=== PATIENT | female | born 1990 | race Caucasian/White ===

== ENCOUNTER 2019-07-14 14:06 | Observation (INO) | payer MEDICAID, OTHER ==
[~2019-07-14] VITALS: Ht 167.6 cm; Wt 88.6 kg
[2019-07-14 14:35] VITALS: BP 119/64
[2019-07-14 15:25] LABS: MICROSCOPIC INDICATED
[2019-07-14 15:27] LABS: AMPHETAMINE SCREEN, URINE Negative (Negative); BARBITURATE SCREEN, URINE Negative (Negative); BENZODIAZEPINE SCREEN, URINE Negative (Negative); CANNABINOID SCREEN, URINE Positive (Negative); COCAINE SCREEN, URINE Negative (Negative); METHADONE SCREEN, URINE Negative (Negative); OPIATE SCREEN, URINE Negative (Negative)
[2019-07-14] MEDS ORDERED: OXYcodone/APAP 5/325MG TABLET ONE (17:33)
[2019-07-14 17:46] LABS: BASOPHILS # (AUTO) 0.06 x10^3/uL (0-0.1); BASOPHILS % (AUTO) 1 % (0-1); EOSINOPHILS # (AUTO) 0.11 x10^3/uL (0-0.4); EOSINOPHILS % (AUTO) 1 % (1-7); LYMPHOCYTES # (AUTO) 2.44 x10^3/uL (1-3.4); LYMPHOCYTES % (AUTO) 24 % (22-44); MD NO; MEAN CORPUSCULAR HEMOGLOBIN 31.2 pg (27.0-34.8); MEAN CORPUSCULAR HGB CONC 34.3 g/dL (32.4-35.8); MEAN PLATELET VOLUME 7.5 fL (7.4-10.4); MONOCYTES # (AUTO) 0.42 x10^3/uL (0.2-0.8); MONOCYTES % (AUTO) 4 % (2-9); NEUTROPHILS # (AUTO) 7.29 x10^3/uL (1.8-6.8); NEUTROPHILS % (AUTO) 71 % (42-75); PLATELET COUNT 302 x10^3/uL (130-400); RED BLOOD COUNT 3.52 x10^6/uL (3.82-5.3); RED CELL DISTRIBUTION WIDTH 13.9 % (9.6-15.2)
[2019-07-14] MEDS ORDERED: OXYcodone/APAP 5/325MG TABLET PO ONE (18:00)
[2019-07-14] MEDS ORDERED: PLEASE ENTER ALLERGIES MC SCH (18:00)
[2019-07-14 18:47] LABS: ALBUMIN 3.3 g/dL (3.4-5.0); ANION GAP 8 mmol/L (5-15); CALCIUM 9.1 mg/dL (8.5-10.1); CHLORIDE 110 mmol/L (98-107)
[2019-07-14 18:50] LABS: ALANINE AMINOTRANSFERASE 26 U/L (12-78); ALKALINE PHOSPHATASE 59 U/L (45-117); BILIRUBIN,TOTAL 0.3 mg/dL (0.2-1.0); CREATININE 0.49 mg/dL (0.55-1.02); TOTAL PROTEIN 7.1 g/dL (6.4-8.2)
[2019-07-14] MEDS ORDERED: OXYC-302 PO (22:13)
== END 2019-07-14 22:33 | disposition home or self-care (01) ==
LOC: LDOP 14:06 → LDIP 18:21
PROVIDERS: ADMIT Obstetrics & Gynecology; ATTEND Obstetrics & Gynecology
DX: O34.82 Maternal care for other abnormalities of pelvic organs, second trimester (principal); N83.209 Unspecified ovarian cyst, unspecified side; O99.212 Obesity complicating pregnancy, second trimester; Z68.30 Body mass index [BMI] 30.0-30.9, adult; Z3A.22 22 weeks gestation of pregnancy; Z87.891 Personal history of nicotine dependence; Z79.899 Other long term (current) drug therapy
CPT/HCPCS: 36415; 72195; 76857; 80053; 80307; 81001; 82150; 83605; 85025; 87086; 99201; G0378; G0463